=== PATIENT | female | born 1980 | race Caucasian/White ===

== ENCOUNTER 2019-02-04 15:11 | Emergency (ER) | payer BC ==
[~2019-02-04] VITALS: Ht 165.1 cm; Wt 54.4 kg
[2019-02-04 16:11] LABS: BASO # 0.1 x10^3/uL (0.0-0.2); BASO % 1 % (0-3); EOS % 0 % (0-3); HEMATOCRIT 38.2 % (36.0-47.0); HEMOGLOBIN 12.8 g/dL (12.0-15.5); LYMPH # 1.5 x10^3/uL (1.0-4.8); LYMPH % 20 % (24-48); MEAN CORPUSCULAR HEMOGLOBIN 33 pg (25-35); MEAN CORPUSCULAR HGB CONC 34 g/dL (31-37); MEAN CORPUSCULAR VOLUME 97 fL (79-100); MONO # 0.4 x10^3/uL (0.0-1.1); MONO % 6 % (0-9); NEUT # 5.6 x10^3uL (1.8-7.7); NEUT % 74 % (31-73); PLATELET COUNT 305 x10^3/uL (140-400); RED BLOOD COUNT 3.94 x10^6/uL (3.50-5.40); WHITE BLOOD COUNT 7.6 x10^3/uL (4.0-11.0)
[2019-02-04 16:21] LABS: PROTHROMBIN TIME PATIENT 14.4 SEC (11.7-14.0)
[2019-02-04 16:39] LABS: CALCIUM 8.9 mg/dL (8.5-10.1); CREATININE 0.8 mg/dL (0.6-1.0); GFR 79.4; POTASSIUM 3.8 mmol/L (3.5-5.1)
[2019-02-04] MEDS ORDERED: IOHEXOL 350 MG/ML 100 ML VIAL. IV ONE (16:45)
[2019-02-04 16:51] LABS: ALBUMIN 3.5 g/dL (3.4-5.0); MAGNESIUM 1.9 mg/dL (1.8-2.4); TOTAL BILIRUBIN 0.6 mg/dL (0.2-1.0); TOTAL PROTEIN 7.1 g/dL (6.4-8.2)
[2019-02-04 16:58] LABS: CREATINE KINASE 36 U/L (26-192)
[2019-02-04] MEDS ORDERED: CONTRAST GIVEN. MC PRN (17:00)
--- NOTE | 2019-02-04 17:23 | RAD ---
CTA of the chest with contrast, 02/04/2019: HISTORY: Elevated d-dimer, chest pain Multidetector CT imaging was performed following an IV bolus injection of iodinated contrast material. Multiplanar reconstructions were produced including coronal and sagittal MIP images. The central pulmonary arteries are well opacified and no filling defects are seen to suggest pulmonary emboli. In the left lower lobe there is some decreased density along the [place] of a subsegmental pulmonary artery. Similar findings are seen in the nearby pulmonary veins. This probably represents pulsation/motion artifact. No definite pulmonary emboli are identified. The thoracic aorta is of normal caliber. There is no evidence of aortic dissection. No mediastinal or hilar adenopathy is seen. There are minimal linear opacities in the apices compatible scarring. No pulmonary consolidation is seen. There is no evidence of pleural fluid. The limited views of the upper abdomen demonstrate a large heterogeneous mass involving the left kidney. It measures at least 6.4 cm in diameter and is incompletely visualized on these scans. A renal malignancy is a likely possibility. IMPRESSION: 1. No CT evidence of central pulmonary emboli. 2. Large solid left renal mass, incompletely visualized on these chest images. A renal malignancy is likely. PQRS Compliance Statement: One or more of the following individualized dose reduction techniques were utilized for this examination: 1. Automated exposure control 2. Adjustment of the mA and/or kV according to patient size 3. Use of iterative reconstruction technique Electronically signed by: Serafin Marshall MD (02/04/2019 5:21 PM) [facility]
--- NOTE | 2019-02-04 17:59 | RAD ---
PQRS Compliance statement: One or more of the following individualized dose reduction techniques were utilized for this examination: 1. Automated exposure control. 2. Adjustment of the mA and/or kV according to patient size. 3. Use of iterative reconstruction technique. Indication:ABNORMAL CT, NO PRIORS TECHNIQUE: CT abdomen and pelvis without IV contrast with multiplanar reformats. COMPARISON: None FINDINGS: Limited evaluation of solid abdominal and pelvic organs due to lack of IV contrast. Heart is normal in size. No pericardial or pleural effusion. Clear lung bases. Noncontrast appearance of the liver, spleen, pancreas, adrenals and right kidney within normal limits. Bilateral renal collecting system is opacified with excreted contrast from previous exam. Gallbladder is decompressed. 7.7 x 6.4 x 7.6 cm solid mass is seen in the left kidney involving interpolar and lower kidney with perinephric neovascularity. Mass effect is seen on the collecting system. No free pelvic fluid or ascites. No enlarged retroperitoneal or pelvic adenopathy. Uterus is present. Urinary bladder is opacified with excreted contrast from previous exam. No pneumoperitoneum. No bowel obstruction. No suspicious bony lesion. IMPRESSION: Limited evaluation of solid abdominal and pelvic organs due to lack of IV contrast. 1. Solid left renal mass highly concerning for renal cell carcinoma. Management recommended. Electronically signed by: Tacos Rascon DO (02/04/2019 5:56 PM) [facility]
[2019-02-04 18:47] VITALS: BP 106/61
--- NOTE | 2019-02-04 19:40 | PHYS DOC ---
Past Medical History Past Medical History: No Pertinent History (MARIBEL RAMIREZ APRN) Past Surgical History: No Surgical History (MARIBEL RAMIREZ APRN) Alcohol Use: Occasionally Drug Use: None (MARIBEL RAMIREZ APRN) Adult General Chief Complaint Chief Complaint: ABNORMAL LABS HPI HPI Patient is a 38 year old female with no significant medical history who presents to the ED today from the doctor's office because her d-dimer was elevated. Patient states she had a d-dimer done because she complained of chest pain and shortness of breath that has been going on intermittently since Sunday. Patient denies anything specific any exacerbating or relieving the pain. Patient unable to give the chest pain a good description. She states it feels like heaviness. Patient states she is on control and her PCP was concerned about PE. Patient denies any fever, coughing or congestion, denies any recent hospitalizations. Denies any unilateral leg pain. (MARIBEL RAMIREZ APRN) Review of Systems Review of Systems Constitutional: Denies fever or chills [] Eyes: Denies change in visual acuity, redness, or eye pain [] HENT: Denies nasal congestion or sore throat [] Respiratory: Denies cough or shortness of breath [] Cardiovascular: Reports chest pain or shortness of breath. GI: Denies abdominal pain, nausea, vomiting, bloody stools or diarrhea [] : Denies dysuria or hematuria [] Musculoskeletal: Denies back pain or joint pain [] Integument: Denies rash or skin lesions [] Neurologic: Denies headache, focal weakness or sensory changes [] All other systems were reviewed and found to be within normal limits, except as documented in this note. (MARIBEL RAMIREZ APRN) Current Medications Current Medications Current Medications Medications (Trade) Dose Ordered Sig/Dory Start Time Stop Time Status Last Admin Dose Admin Info (CONTRAST GIVEN -- Rx MONITORING) 1 each PRN DAILY PRN 02/04/19 17:00 02/04/19 20:19 DC Iohexol (Omnipaque 350 Mg/ml) 75 ml 1X ONCE 02/04/19 16:45 02/04/19 16:46 DC 02/04/19 16:46 75 ML (DELON LESTER DO) Allergies Allergies Allergies Coded Allergies Type Severity Reaction Last Updated Verified No Known Drug Allergies 4/2/19 No (DELON LESTER DO) Physical Exam Physical Exam Constitutional: Well developed, well nourished, no acute distress, non-toxic appearance. [] HENT: Normocephalic, atraumatic, bilateral external ears normal, oropharynx moist, no oral exudates, nose normal. [] Eyes: PERRLA, EOMI, conjunctiva normal, no discharge. [] Neck: Normal range of motion, no tenderness, supple, no stridor. [] Cardiovascular:Heart rate regular rhythm, no murmur [] Lungs & Thorax: Bilateral breath sounds clear to auscultation [] Abdomen: Bowel sounds normal, soft, no tenderness, no masses, no pulsatile masses. [] Skin: Warm, dry, no erythema, no rash. [] Back: No tenderness, no CVA tenderness. [] Extremities: No tenderness, no cyanosis, no clubbing, ROM intact, no edema. [] Neurologic: Alert and oriented X 3, normal motor function, normal sensory function, no focal deficits noted. [] Psychologic: Flat affect (MUTUNGA,MARIBEL PIG CONVEYOR OPERATOR) Current Patient Data Vital Signs Vital Signs Date Time Temp Pulse Resp B/P (MAP) Pulse Ox O2 Delivery O2 Flow Rate FiO2 02/04/19 18:47 84 18 106/61 (76) 99 Room Air 02/04/19 15:40 98.6 98.6 (LESTER,DELON Pam CHAVEZ) Lab Values Laboratory Tests Test 02/04/19 16:00 02/04/19 19:20 02/04/19 19:35 White Blood Count 7.6 x10^3/uL (4.0-11.0) Red Blood Count 3.94 x10^6/uL (3.50-5.40) Hemoglobin 12.8 g/dL (12.0-15.5) Hematocrit 38.2 % (36.0-47.0) Mean Corpuscular Volume 97 fL (79-100) Mean Corpuscular Hemoglobin 33 pg (25-35) Mean Corpuscular Hemoglobin Concent 34 g/dL (31-37) Red Cell Distribution Width 13.0 % (11.5-14.5) Platelet Count 305 x10^3/uL (140-400) Neutrophils (%) (Auto) 74 % (31-73) H Lymphocytes (%) (Auto) 20 % (24-48) L Monocytes (%) (Auto) 6 % (0-9) Eosinophils (%) (Auto) 0 % (0-3) Basophils (%) (Auto) 1 % (0-3) Neutrophils # (Auto) 5.6 x10^3uL (1.8-7.7) Lymphocytes # (Auto) 1.5 x10^3/uL (1.0-4.8) Monocytes # (Auto) 0.4 x10^3/uL (0.0-1.1) Eosinophils # (Auto) 0.0 x10^3/uL (0.0-0.7) Basophils # (Auto) 0.1 x10^3/uL (0.0-0.2) Prothrombin Time 14.4 SEC (11.7-14.0) H Prothrombin Time INR 1.2 (0.8-1.1) H PTT 29 SEC (24-38) Sodium Level 142 mmol/L (136-145) Potassium Level 3.8 mmol/L (3.5-5.1) Chloride Level 105 mmol/L (98-107) Carbon Dioxide Level 24 mmol/L (21-32) Anion Gap 13 (6-14) Blood Urea Nitrogen 11 mg/dL (7-20) Creatinine 0.8 mg/dL (0.6-1.0) Estimated GFR (Cockcroft-Gault) 79.4 BUN/Creatinine Ratio 14 (6-20) Glucose Level 132 mg/dL (70-99) H Calcium Level 8.9 mg/dL (8.5-10.1) Magnesium Level 1.9 mg/dL (1.8-2.4) Total Bilirubin 0.6 mg/dL (0.2-1.0) Aspartate Amino Transferase (AST) 8 U/L (15-37) L Alanine Aminotransferase (ALT) 9 U/L (14-59) L Alkaline Phosphatase 68 U/L (46-116) Creatine Kinase 36 U/L (26-192) Creatine Kinase MB (Mass) < 0.5 ng/mL (0.0-3.6) Creatine Kinase MB Relative Index % (0-4) Troponin I Quantitative < 0.017 ng/mL (0.000-0.055) TV-Lbr-X-Type Natriuretic Peptide 150 pg/mL (0-124) H Total Protein 7.1 g/dL (6.4-8.2) Albumin 3.5 g/dL (3.4-5.0) Albumin/Globulin Ratio 1.0 (1.0-1.7) Lipase 142 U/L (73-393) Urine Collection Type Unknown Urine Color Yellow Urine Clarity Clear Urine pH 6.0 Urine Specific [place] >=1.030 Urine Protein Negative mg/dL (NEG-TRACE) Urine Glucose (UA) Negative mg/dL (NEG) Urine Ketones (Stick) 15 mg/dL (NEG) Urine Blood Negative (NEG) Urine Nitrite Negative (NEG) Urine Bilirubin Negative (NEG) Urine Urobilinogen Dipstick 1.0 mg/dL (0.2 mg/dL) Urine Leukocyte Esterase Negative (NEG) Urine RBC 0 /HPF (0-2) Urine WBC 0 /HPF (0-4) Urine Squamous Epithelial Cells Few /LPF Urine Bacteria 0 /HPF (0-FEW) Urine Opiates Screen Neg (NEG) Urine Methadone Screen Neg (NEG) Urine Barbiturates Neg (NEG) Urine Phencyclidine Screen Neg (NEG) Urine Amphetamine/Methamphetamine Neg (NEG) Urine Benzodiazepines Screen Neg (NEG) Urine Cocaine Screen Neg (NEG) Urine Cannabinoids Screen Neg (NEG) Urine Ethyl Alcohol Neg (NEG) POC Urine HCG, Qualitative Hcg negative (Negative) Laboratory Tests 02/04/19 16:00 Laboratory Tests 02/04/19 16:00 (DELON LESTER DO) EKG EKG Interpreted by Dr. Yates sinus rhythm heart rate 93 no STEMI (MARIBEL RAMIREZ APRN) Radiology/Procedures Radiology/Procedures []PROCEDURE: CT ABDOMEN PELVIS WO CONTRAST PQRS Compliance statement: One or more of the following individualized dose reduction techniques were utilized for this examination: 1. Automated exposure control. 2. Adjustment of the mA and/or kV according to patient size. 3. Use of iterative reconstruction technique. Indication:ABNORMAL CT, NO PRIORS TECHNIQUE: CT abdomen and pelvis without IV contrast with multiplanar reformats. COMPARISON: None FINDINGS: Limited evaluation of solid abdominal and pelvic organs due to lack of IV contrast. Heart is normal in size. No pericardial or pleural effusion. Clear lung bases. Noncontrast appearance of the liver, spleen, pancreas, adrenals and right kidney within normal limits. Bilateral renal collecting system is opacified with excreted contrast from previous exam. Gallbladder is decompressed. 7.7 x 6.4 x 7.6 cm solid mass is seen in the left kidney involving interpolar and lower kidney with perinephric neovascularity. Mass effect is seen on the collecting system. No free pelvic fluid or ascites. No enlarged retroperitoneal or pelvic adenopathy. Uterus is present. Urinary bladder is opacified with excreted contrast from previous exam. No pneumoperitoneum. No bowel obstruction. No suspicious bony lesion. IMPRESSION: Limited evaluation of solid abdominal and pelvic organs due to lack of IV contrast. 1. Solid left renal mass highly concerning for renal cell carcinoma. Management recommended. Electronically signed by: Tacos Rascon DO (02/04/2019 5:56 PM) [facility] DICTATED and SIGNED BY: TACOS RASCON DO DATE: 02/04/191755 PROCEDURE: CT ANGIOGRAPHY CHEST CTA of the chest with contrast, 02/04/2019: HISTORY: Elevated d-dimer, chest pain Multidetector CT imaging was performed following an IV bolus injection of iodinated contrast material. Multiplanar reconstructions were produced including coronal and sagittal MIP images. The central pulmonary arteries are well opacified and no filling defects are seen to suggest pulmonary emboli. In the left lower lobe there is some decreased density along the [place] of a subsegmental pulmonary artery. Similar findings are seen in the nearby pulmonary veins. This probably represents pulsation/motion artifact. No definite pulmonary emboli are identified. The thoracic aorta is of normal caliber. There is no evidence of aortic dissection. No mediastinal or hilar adenopathy is seen. There are minimal linear opacities in the apices compatible scarring. No pulmonary consolidation is seen. There is no evidence of pleural fluid. The limited views of the upper abdomen demonstrate a large heterogeneous mass involving the left kidney. It measures at least 6.4 cm in diameter and is incompletely visualized on these scans. A renal malignancy is a likely possibility. IMPRESSION: 1. No CT evidence of central pulmonary emboli. 2. Large solid left renal mass, incompletely visualized on these chest images. A renal malignancy is likely. PQRS Compliance Statement: One or more of the following individualized dose reduction techniques were utilized for this examination: 1. Automated exposure control 2. Adjustment of the mA and/or kV according to patient size 3. Use of iterative reconstruction technique Electronically signed by: Serafin Henderson MD (02/04/2019 5:21 PM) [facility] DICTATED and SIGNED BY: SERAFIN HENDERSON MD DATE: 02/04/19 1721 (MARIBEL RAMIREZ APRN) Course & Med Decision Making Course & Med Decision Making Pertinent Labs and Imaging studies reviewed. (See chart for details) This is a 38-year-old female patient who presents to the ED today from the doctor's office for PE workup. Patient was seen earlier, d-dimer was elevated. CBC with normal WBC, CMP with no acute findings, UA negative. CTA chest was negative for PE, noted for left renal mass. Follow-up recommended, we did a CT of the abdomen and pelvic, it was noted for solid left renal mass highly concerning for renal carcinoma. Heart score 0. We paged urology several times with no return call. Talked to Dr. Carter to see if he can accept patient for admission and she can be seen by urology in AM. He recommended we wait to hear from urology just incase they decide patient can f/ u as an outpatient. Consulted with rubio Kline NP for urology, she requested we d/c patient and she can follow up in the clinic for treatment options. Discharged in stable condition. (MARIBEL RAMIREZ APRN) Dragon Disclaimer Dragon Disclaimer This electronic medical record was generated, in whole or in part, using a voice recognition dictation system. (MARIBEL RAMIREZ APRN) Departure Departure Impression: Primary Impression: Renal cell carcinoma of left kidney Disposition: 01 HOME, SELF-CARE Condition: STABLE Referrals: UNKNOWN PCP NAME (PCP) DEE ARRIAZA MD Call his office tomorrow and let them you need an appointment Patient Instructions: Renal Cell Cancer Additional Instructions: You were evaluated in the ED and noted for have left renal cell carcinoma/ cancer. The Urologist requested you follow up with their clinic and they will give you options on management of this condition. Please call them tomorrow and set up a follow up appointment. Attending Signature Attending Signature I have reviewed the PA/CUSTOMER SERVICE ADMINISTRATOR's note and plan of care. I was available for consultation as needed during the patient's visit in the emergency department. I agree with the clinical impression, plan, and disposition. (DELON LESTER DO) MARIBEL RAMIREZ APRN Feb 04, 2019 19:40 DELON LESTER DO Feb 23, 2019 13:09
[2019-02-04 19:47] LABS: BILIRUBIN,URINE NEGATIVE (NEG); CLARITY,URINE CLEAR; COLOR,URINE YELLOW; NITRITE,URINE NEGATIVE (NEG); PROTEIN,URINE NEGATIVE (NEG-TRACE)
[2019-02-04 19:53] LABS: BARBITURATES NEG (NEG); BENZODIAZEPINES NEG (NEG); CANNABINOIDS NEG (NEG); COCAINE NEG (NEG); METHADONE NEG (NEG); OPIATES NEG (NEG); PHENCYCLIDINE NEG (NEG)
[2019-02-04 19:55] LABS: AMPHETAMINE/METHAMPHETAMINE NEG (NEG); BACTERIA,URINE 0 /HPF (0-FEW); RBC,URINE 0 /HPF (0-2); SQUAMOUS EPITHELIAL CELL,UR FEW /LPF; WBC,URINE 0 /HPF (0-4)
--- NOTE | 2019-02-05 07:59 | EKG ---
[facility] [address] [place] [address] Test Date: 2019-02-04 Test Time: 15:51:34 Pat Name: DEVIN STOVER Department: Room: Gender: F Oil And Gas Exploration Technician: : 1980 Requested By: MARIBEL RAMIREZ Order Number: [id number] Reading MD: Fam Vinson MD Measurements Intervals [place] Rate: 93 P: 49 WV: 174 QRS: 59 QRSD: 62 T: 58 QT: 330 QTc: 413 Interpretive Statements SINUS RHYTHM Electronically Signed On 02-06-2019 9:11:37 CDT by Fam Vinson MD
== END 2019-02-04 20:08 | disposition home or self-care (01) ==
LOC: ER 15:11
DX: D09.19 Carcinoma in situ of other urinary organs (principal); R07.9 Chest pain, unspecified; R06.02 Shortness of breath
CPT/HCPCS: 36415; 71275; 74176; 80053; 80307; 81001; 81025; 82553; 83690; 83735; 83880; 84484; 85025; 85610; 85730; 93005; 99284; Q9967